=== PATIENT | male | born 1950 | race Caucasian/White ===

== ENCOUNTER 2017-12-05 13:25 | Inpatient (IN) | payer OTHER, MEDICARE ==
[~2017-12-05] VITALS: Ht 170.2 cm; Wt 80.7 kg
[~2017-12-05 13:25] MED LIST: LISI-362 PO; LOSA25TA50 PO; RAMI10CA72 PO; TERB250T63 PO
--- NOTE | 2017-12-05 13:35 | ER Report ---
History and Physical Time Seen By MD: 13:34 HPI/ROS CHIEF COMPLAINT: Fall HISTORY OF PRESENT ILLNESS: This is a 67-year-old male who presents to the emergency department with his for a fall. Patient states he was on a ladder today working on some [employer] lights when a claude of wind blew him off his ladder, he was about 7 feet off the ground. Landed on the right side of his back, on frozen ground. Patient states he is unsure if he actually lost consciousness, according to his he was confused for about 10 minutes after the fall. injury occurred about one hour prior to arrival. Patient was reluctant to come in for evaluation however after his pain increased his back, his convinced him to come in for further evaluation. Patient states today his right back and right ribs are painful and difficult to take deep breaths. He denies a headache or C-spine tenderness. Denies chest pain or abdominal pain. Denies fevers, aches, chills, nausea, vomiting or diarrhea. Patient is unable to sit up on the gurney without significant pain. REVIEW OF SYSTEMS: Constitutional: No fever, no chills. Eyes: No discharge. ENT: No sore throat. Cardiovascular: No chest pain, no palpitations. Respiratory: As above. Gastrointestinal: No abdominal pain, no vomiting. Genitourinary: No hematuria. Musculoskeletal: As above. Skin: No rashes. Neurological: No headache. Allergies: Coded Allergies: No Known Allergies (Verified Allergy, Unknown, 12/05/17) Home Meds Reported Medications Losartan Potassium (LOSARTAN POTASSIUM) 50 Mg Tablet, 50 MG PO QDAY 12/05/17 Discontinued Reported Medications Losartan Potassium (LOSARTAN POTASSIUM) 25 Mg Tablet, 5 MG PO QDAY 03/25/17 Past Medical/Surgical History Bateman has a past medical and surgical history of hypertension, left ankle fracture, wears glasses. Reviewed Nurses Notes: Yes Hx Smoking: No (CHEWS TOBACCO, 1 CAN PER WEEK ) Smoking Status: Never Smoker Hx Alcohol Use: Yes Constitutional Vital Sign - Last 24 Hours 12/05/17 12/05/17 12/05/17 12/05/17 13:29 13:31 13:34 13:40 Temp 97.5 Pulse 64 59 Resp 20 B/P (MAP) 172/88 165/91 (115) 172/88 (116) Pulse Ox 92 90 O2 Delivery Room Air 12/05/17 12/05/17 12/05/17 12/05/17 13:42 14:25 15:00 15:15 Pulse 66 64 83 B/P (MAP) 165/94 (117) Pulse Ox 90 89 90 12/05/17 12/05/17 12/05/17 12/05/17 15:30 15:45 15:50 15:51 Pulse 67 70 70 B/P (MAP) 141/76 (97) Pulse Ox 91 88 83 12/05/17 12/05/17 12/05/17 12/05/17 16:05 16:12 16:20 16:35 Pulse 73 69 71 B/P (MAP) 163/86 (111) Pulse Ox 97 98 12/05/17 16:50 Pulse 64 Pulse Ox 97 Physical Exam General Appearance: The patient is alert, has no immediate need for airway protection and no signs of toxicity. Eyes: Pupils equal and round no pallor or injection. ENT: Ears: TMs intact, pearly ziegler, no injection or hemotympanum. Nose: Inferior turbinates are pink and moist, no nasal discharge, no hematomas noted. Mouth:Mucous membranes are moist. Respiratory: There are no retractions, decreased lung sounds to be right lower lung field, all other jenkins clear. Cardiovascular: Regular rate and rhythm, no murmurs, clicks or rubs. No muffled heart sounds or JVD. Gastrointestinal: Abdomen is soft and non tender, no masses, bowel sounds normal. Neurological: Alert and oriented 4. Following all commands. Moving all extremities. No focal neuro deficits. Cranial nerves II through XII intact. Skin: Warm and dry, no rashes. No retroperitoneal bruising. No hematomas. Musculoskeletal: Neck is supple non tender. No thoracic or lumbar pain. No step -offs, crepitus or obvious deformities noted. Extremities are nontender, nonswollen and have full range of motion. DIFFERENTIAL DIAGNOSIS: After history and physical exam differential diagnosis was considered for contusion, rib fracture, concussion, cervical spine injury, intracranial bleed, kidney contusion, liver fracture, liver laceration, compression fracture. Medical Decision Making Data Points Result Diagram: 12/05/17 1335 12/05/17 1335 Laboratory Hematology Test 12/05/17 13:35 Red Blood Count 5.44 M/uL (4.00-5.60) Mean Corpuscular Volume 94.0 fL (80.0-96.0) Mean Corpuscular Hemoglobin 31.5 pg (26.0-33.0) Mean Corpuscular Hemoglobin Concent 33.5 g/dL (32.0-36.0) Red Cell Distribution Width 13.6 % (11.5-14.5) Mean Platelet Volume 8.6 fL (7.2-11.1) Neutrophils (%) (Auto) 76.1 % (39.4-72.5) Lymphocytes (%) (Auto) 16.7 % (17.6-49.6) Monocytes (%) (Auto) 5.9 % (4.1-12.4) Eosinophils (%) (Auto) 0.8 % (0.4-6.7) Basophils (%) (Auto) 0.5 % (0.3-1.4) Nucleated RBC Relative Count (auto) 0.0 /100WBC Neutrophils # (Auto) 9.2 K/uL (2.0-7.4) Lymphocytes # (Auto) 2.0 K/uL (1.3-3.6) Monocytes # (Auto) 0.7 K/uL (0.3-1.0) Eosinophils # (Auto) 0.1 K/uL (0.0-0.5) Basophils # (Auto) 0.1 K/uL (0.0-0.1) Nucleated RBC Absolute Count (auto) 0.00 K/uL Prothrombin Time 13.0 seconds (12.0-14.4) Prothromb Time International Ratio 0.98 Activated Partial Thromboplast Time 26 seconds (23-35) Urine Color Yellow Urine Clarity Slightly-cloudy Urine pH 5.0 pH (4.8-9.5) Urine Specific [place] 1.014 Urine Protein 100 mg/dL (NEGATIVE) Urine Glucose (UA) Negative mg/dL (NEGATIVE) Urine Ketones Negative mg/dL (NEGATIVE) Urine Blood Large (NEGATIVE) Urine Nitrite Negative (NEGATIVE) Urine Bilirubin Negative (NEGATIVE) Urine Urobilinogen Negative mg/dL (0.2-1.9) Urine Leukocyte Esterase Negative (NEGATIVE) Urine RBC 124 /HPF (0-2/HPF) Urine WBC 12 /HPF (0-5/HPF) Urine Squamous Epithelial Cells Few /LPF (</=FEW) Urine Bacteria Negative /HPF (NONE-FEW) Urine Granular Casts Many /LPF (NONE) Urine Mucus None /HPF (NONE-FEW) Sodium Level 138 mmol/L (137-145) Potassium Level 4.4 mmol/L (3.5-5.0) Chloride Level 102 mmol/L (98-107) Carbon Dioxide Level 25 mmol/L (22-30) Blood Urea Nitrogen 15 mg/dl (9-21) Creatinine 1.20 mg/dl (0.66-1.25) Glomerular Filtration Rate Calc > 60.0 Random Glucose 131 mg/dl (75-110) Calcium Level 9.2 mg/dl (8.4-10.2) Total Bilirubin 0.8 mg/dl (0.2-1.3) Aspartate Amino Transf (AST/SGOT) 46 U/L (0-35) Alanine Aminotransferase (ALT/SGPT) 43 U/L (0-56) Alkaline Phosphatase 77 U/L (0-126) Total Protein 7.6 gm/dl (6.3-8.2) Albumin 4.0 g/dl (3.5-5.0) Chemistry Test 12/05/17 13:35 White Blood Count 12.2 k/uL (4.5-11.0) Red Blood Count 5.44 M/uL (4.00-5.60) Hemoglobin 17.1 g/dL (14.0-18.0) Hematocrit 51.1 % (42.0-52.0) Mean Corpuscular Volume 94.0 fL (80.0-96.0) Mean Corpuscular Hemoglobin 31.5 pg (26.0-33.0) Mean Corpuscular Hemoglobin Concent 33.5 g/dL (32.0-36.0) Red Cell Distribution Width 13.6 % (11.5-14.5) Platelet Count 332 K/uL (150-450) Mean Platelet Volume 8.6 fL (7.2-11.1) Neutrophils (%) (Auto) 76.1 % (39.4-72.5) Lymphocytes (%) (Auto) 16.7 % (17.6-49.6) Monocytes (%) (Auto) 5.9 % (4.1-12.4) Eosinophils (%) (Auto) 0.8 % (0.4-6.7) Basophils (%) (Auto) 0.5 % (0.3-1.4) Nucleated RBC Relative Count (auto) 0.0 /100WBC Neutrophils # (Auto) 9.2 K/uL (2.0-7.4) Lymphocytes # (Auto) 2.0 K/uL (1.3-3.6) Monocytes # (Auto) 0.7 K/uL (0.3-1.0) Eosinophils # (Auto) 0.1 K/uL (0.0-0.5) Basophils # (Auto) 0.1 K/uL (0.0-0.1) Nucleated RBC Absolute Count (auto) 0.00 K/uL Prothrombin Time 13.0 seconds (12.0-14.4) Prothromb Time International Ratio 0.98 Activated Partial Thromboplast Time 26 seconds (23-35) Urine Color Yellow Urine Clarity Slightly-cloudy Urine pH 5.0 pH (4.8-9.5) Urine Specific [place] 1.014 Urine Protein 100 mg/dL (NEGATIVE) Urine Glucose (UA) Negative mg/dL (NEGATIVE) Urine Ketones Negative mg/dL (NEGATIVE) Urine Blood Large (NEGATIVE) Urine Nitrite Negative (NEGATIVE) Urine Bilirubin Negative (NEGATIVE) Urine Urobilinogen Negative mg/dL (0.2-1.9) Urine Leukocyte Esterase Negative (NEGATIVE) Urine RBC 124 /HPF (0-2/HPF) Urine WBC 12 /HPF (0-5/HPF) Urine Squamous Epithelial Cells Few /LPF (</=FEW) Urine Bacteria Negative /HPF (NONE-FEW) Urine Granular Casts Many /LPF (NONE) Urine Mucus None /HPF (NONE-FEW) Glomerular Filtration Rate Calc > 60.0 Calcium Level 9.2 mg/dl (8.4-10.2) Total Bilirubin 0.8 mg/dl (0.2-1.3) Aspartate Amino Transf (AST/SGOT) 46 U/L (0-35) Alanine Aminotransferase (ALT/SGPT) 43 U/L (0-56) Alkaline Phosphatase 77 U/L (0-126) Total Protein 7.6 gm/dl (6.3-8.2) Albumin 4.0 g/dl (3.5-5.0) Coagulation Test 12/05/17 13:35 Prothrombin Time 13.0 seconds Prothromb Time International Ratio 0.98 Activated Partial Thromboplast Time 26 seconds Urinalysis Test 12/05/17 13:35 Urine Color Yellow Urine Clarity Slightly-cloudy Urine pH 5.0 pH (4.8-9.5) Urine Specific [place] 1.014 Urine Protein 100 mg/dL (NEGATIVE) Urine Glucose (UA) Negative mg/dL (NEGATIVE) Urine Ketones Negative mg/dL (NEGATIVE) Urine Blood Large (NEGATIVE) Urine Nitrite Negative (NEGATIVE) Urine Bilirubin Negative (NEGATIVE) Urine Urobilinogen Negative mg/dL (0.2-1.9) Urine Leukocyte Esterase Negative (NEGATIVE) Urine RBC 124 /HPF (0-2/HPF) Urine WBC 12 /HPF (0-5/HPF) Urine Squamous Epithelial Cells Few /LPF (</=FEW) Urine Bacteria Negative /HPF (NONE-FEW) Urine Granular Casts Many /LPF (NONE) Urine Mucus None /HPF (NONE-FEW) EKG/Imaging Imaging Location: [facility] Patient: Pradeep Camargo : 1950 Visit/Account:[id number] Date of Sevice: 12/05/2017 EXAMINATION: CT Cervical Spine Without Contrast 12/05/2017 1:47 PM HISTORY: Fall. Loss of consciousness. COMPARISON STUDIES: Additional trauma CTs today TECHNIQUE: Axial images were obtained from the skull base through the upper thoracic spine without IV contrast administration. Coronal and sagittal reformatted images were obtained from the axial source data. One of the following dose optimization techniques was utilized in the performance of this exam: Automated exposure control; adjustment of the mA and/ or kV according to the patient's size; or use of an iterative reconstruction technique. Specific details can be referenced in the facility's radiology CT exam operational policy. FINDINGS: Pre-vertebral soft tissues: negative Alignment: negative Vertebral bodies: No acute injury. Hemangioma in the T7 and T1 vertebral bodies. Posterior elements: Fairly mild facet spurring mostly towards the left at C3-4. Disc Spaces: Multilevel spondylosis. Disc height loss and disc bulging at C6-7. Visualized soft tissues anterior neck: Carotid atherosclerosis. Low-density or cystic nodules within the right thyroid better shown by chest CT today. Visualized lung / mediastinum: Small pneumothorax in the right apex. IMPRESSION: No acute bony injury of the cervical spine. Small right pneumothorax is present. See separate chest CT report. I called report to DEJAH KENT at 12/05/2017 3:44 PM. Report Dictated By: Damon Ly MD at 12/05/2017 3:12 PM Report E-Signed By: Damon Ly MD at 12/05/2017 3:46 PM WSN:[id number] Location: [facility] Patient: Pradeep Camargo : 1950 Visit/Account:[id number] Date of Sevice: 12/05/2017 ADDENDUM #1 There is minimal gas lateral to the right rib cage which would support air leak. Report Dictated By: Damon Ly MD at 12/05/2017 3:18 PM Report E-Signed By: Damon Ly MD at 12/05/2017 3:19 PM ORIGINAL REPORT EXAMINATION: Portable AP Chest 12/05/2017 1:47 PM HISTORY: Fall COMPARISON: No prior comparisons. Pending trauma CTs. FINDINGS: Cardiomediastinal contours: Aortic knob is well-defined. Aorta is atherosclerotic. Heart is not significantly enlarged. Lungs and pleura: Airspace density in the right lower lung field. Minimal atelectasis or scarring in the lateral left base. No visible pneumothorax. Bones/soft tissues: Mild lateral right fourth rib deformity of uncertain chronicity. IMPRESSION: 1. Airspace density in the right lower lung could be due to trauma or possibly pulmonary infiltrate. 2. Possible lateral right fourth rib fracture. Report Dictated By: Damon Ly MD at 12/05/2017 2:27 PM Report E-Signed By: Damon Ly MD at 12/05/2017 2:46 PM WSN:[id number] Location: [facility] Patient: Pradeep Camargo : 1950 Visit/Account:[id number] Date of Sevice: 12/05/2017 ADDENDUM #1 I did discuss in the body of the report but did not specifically noted in the impression that there is a narrowed segment in the sigmoid colon. This may more likely simply be peristalsis but a fixed annular focus is difficult to exclude entirely. If the patient has not had maintenance routine screening colonoscopy, that would be worthwhile. I did call this to the ER at 5:51 PM. Report Dictated By: Damon Ly MD at 12/05/2017 6:01 PM Report E-Signed By: Damon Ly MD at 12/05/2017 6:02 PM ORIGINAL REPORT EXAMINATION: CT Chest With Contrast CT Abdomen With Contrast CT Pelvis With Contrast CT thoracic spine reformats CT lumbar spine reformats 12/05/2017 1:47 PM HISTORY: Fall. Loss of consciousness. TECHNIQUE: Spiral scan was obtained through the chest, abdomen and pelvis during injection of nonionic iodinated intravenous contrast. Dedicated reformatting was also done to cover the thoracic and lumbar spine. Contrast: 100 mL of IV Isovue 370. One of the following dose optimization techniques was utilized in the performance of this exam: Automated exposure control; adjustment of the mA and/ or kV according to the patient's size; or use of an iterative reconstruction technique. Specific details can be referenced in the facility's radiology CT exam operational policy. COMPARISON STUDIES: Separate CT head and cervical spine today. FINDINGS: CHEST: Lungs / pleura: Airspace opacity or pulmonary contusion in the right lower lobe. Small right pneumothorax. Small effusion. No significant acute finding on the left. Mediastinum / lilia: No mediastinal hematoma or shift. Heart / pericardium: negative Vessels: negative Musculoskeletal / Body wall: Posterolateral right rib fractures involving the fourth fourth through ninth and possibly the 10th ribs. There is also subtle cortical buckling in the anterolateral right third through sixth ribs which is probably acutely traumatic. There is soft tissue gas along the lateral and posterior right chest wall and there is some gas in front of the thoracic spine and in the epidural space. Lymph node assessment: negative Lower neck: Cystic-appearing right lobe thyroid nodules. Thoracic spine: Paraspinous gas from T5 through T6 as well as some epidural gas at these levels presumably dissecting from the chest wall related to the pneumothorax. Hemangioma in the T1 vertebral body. Superior endplate concavity at C5 is probably chronic. Mild wedging at T8. Subtle superior endplate wedging at T10 and T11 with mild wedging at T12. No bony retropulsion. No acute traumatic involvement of the pedicles or posterior elements. Multilevel degenerative spurring in the mid and lower thoracic spine. ABDOMEN AND PELVIS: Liver / biliary: Fatty liver. No acute injury. Pancreas: negative Spleen: negative Adrenal glands: negative Kidneys / retroperitoneum: Small cortical cysts. No acute injury. Pelvic structures: Prostate is prominent at 5.5 x 5.4 cm. Bladder is slightly thick-walled secondary to that. Bowel / peritoneum / mesenteries: Diverticulosis of the distal colon. No obstruction or acute bowel injury. Diverticulosis of colon. There is a thickened diverticulum with inflammation of fat around it in the anterolateral mid descending colon. Just over 3 cm short narrowed segment is present in the mid sigmoid colon. Vessels: Atherosclerosis. 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 Musculoskeletal / Body wall: No acute bony injury in the pelvis.. Small fatty inguinal hernia on the right with minimal fatty inguinal protrusion on the left. Lymph no e assessment: negative Lumbar spine: Subtly wedged appearance at L1; I would favor chronicity. There is no retropulsion or posterior element involvement. Degenerative changes most notably at L5-S1. IMPRESSION:1. Multiple right rib fractures with a small pneumothorax and gas dissecting the chest wall and the paraspinous area. There is also right pulmonary contusion and small right effusion. 2. Mild thoracic and lumbar wedgings as detailed by level above. All of these may be chronic although one or more could be acute compressive deformities. There is no bony retropulsion or any posterior element involvement to indicate any mechanical instability at these levels. 3. No other acute traumatic finding in the chest, abdomen, or pelvis. 4. Diverticulitis in the mid descending colon. 5. Low-density or cystic right lobe thyroid nodules. I called report to DEJAH KENT at 12/05/2017 3:44 PM. Report Dictated By: Damon Ly MD at 12/05/2017 3:24 PM Report E-Signed By: Damon Ly MD at 12/05/2017 3:55 PM WSN:[id number] ED Course/Re-evaluation Clinical Indication for ER IV: Hydration, IV Access ED Course The patient was admitted to room. A history and physical were obtained. Differential diagnoses were considered. An IV was started. A CBC, CMP, PT/INR, PTT and UA were obtained. Slight bump in his WBCs at 12.2 likely traumatic increase. 4 mg IV Zofran, 4 mg IV morphine were given. Tetanus updated. The rest of the rest of the lab studies unremarkable. The urine showing large blood , urine RBC 124, likely from contused kidney. Head and neck CT negative for any acute findings. A chest abdomen and pelvis showing multiple right rib fractures with a small pneumothorax, pneumomediastinum, pulmonary contusion with a fusion. Also mild thoracic and lumbar wedging could be chronic however given the recent injury could be acute. No other acute traumatic findings in the chest abdomen or pelvis. Incidental finding of diverticulitis and cystic right lobe thyroid nodule. I did review the results as well as the CT results with the patient and his . The patient stated that he was surprised with results but was willing to come into the hospital for pain control and continued observation. I did speak with Dr. Wells as noted below. Dr. Wells has accepted the patient indicated his services and the patient will be admitted to the hospital. Dr. Wells did come in and see the patient's. The patient had no other questions or concerns and was admitted. 12/05/2017 4:07:02 pm I did speak with Dr. Wells regarding the patient's case he is can come in to evaluate the patient and consider admission to the hospital. 12/05/2017 4:30:[address] Wells did come and speak with the patient's and has agreed to admit the patient to his service. 12/05/2017 6:40:15 pm radiology called back for another verbal report on several finding, did say that there was maybe some shortening of the sigmoid colon and a follow-up colonoscopy would be warranted. I did update Dr. Wells with the incidental findings. Decision to Disposition Date: Dec 05, 2017 Decision to Disposition Time: 16:37 Depart Departure Latest Vital Signs Vital Signs Date Time Temp Pulse Resp B/P (MAP) Pulse Ox O2 Delivery O2 Flow Rate FiO2 12/05/17 16:50 64 97 12/05/17 16:12 163/86 (111) 12/05/17 13:29 97.5 20 Room Air Impression: Primary Impression: Pneumothorax Additional Impressions: Multiple rib fractures Kidney contusion Fall from ladder Pneumomediastinum Condition: Improved Disposition: Admitted from ER Referrals: MAYNOR PISANO MD (PCP) Problem Qualifiers Primary Impression: Pneumothorax Pneumothorax type: traumatic Encounter type: initial encounter Qualified Codes: S27.0XXA - Traumatic pneumothorax, initial encounter Additional Impressions: Multiple rib fractures Encounter type: initial encounter Fracture type: closed Laterality: right Qualified Codes: S22.41XA - Multiple fractures of ribs, right side, initial encounter for closed fracture Kidney contusion Encounter type: initial encounter Laterality: unspecified laterality Qualified Codes: S37.019A - Minor contusion of unspecified kidney, initial encounter Fall from ladder Encounter type: initial encounter Qualified Codes: W11.XXXA - Fall on and from ladder, initial encounter DEJAH KENTP-BC Dec 05, 2017 13:35
[2017-12-05] MEDS ORDERED: DIPHTH/TETANUS/ACEL. PERTUSSIS IM ONLY ONE (13:50)
[2017-12-05] MEDS ORDERED: MORPHINE 4 MG/ML SYR IVP ONE (14:05)
[2017-12-05] MEDS ORDERED: ONDANSETRON 4 MG/2 ML VIAL IVP ONE (14:05)
[2017-12-05 14:08] LABS: PLATELET COUNT, AUTOMATED 332 K/uL (150-450)
[2017-12-05 14:12] LABS: INR 0.98
[2017-12-05] MEDS ORDERED: IOPAMIDOL 76% 100 ML INFUS BTL 100 ML ONE (14:28)
[2017-12-05] MEDS ORDERED: NS 0.9% 20 ML SDV 60 ML ONE (14:29)
--- NOTE | 2017-12-05 14:50 | RADIOLOGY IMAGING REPORT ---
FACILITY: [facility] [place]IENT NAME: Pradeep Camargo : 1950 MR: [id number] V: [id number] EXAM DATE: ORDERING PHYSICIAN: DEJAH KENT TECHNOLOGIST: Location: [facility] - [place] Patient: Pradeep Camargo : 1950 Visit/Account:[id number] Date of Sevice: 12/05/2017 ADDENDUM #1 There is minimal gas lateral to the right rib cage which would support air leak. Report Dictated By: Damon Ly MD at 12/05/2017 3:18 PM Report E-Signed By: Damon Ly MD at 12/05/2017 3:19 PM ORIGINAL REPORT EXAMINATION: Portable AP Chest 12/05/2017 1:47 PM HISTORY: Fall COMPARISON: No prior comparisons. Pending trauma CTs. FINDINGS: Cardiomediastinal contours: Aortic knob is well-defined. Aorta is atherosclerotic. Heart is not signi ficantly enlarged. Lungs and pleura: Airspace density in the right lower lung field. Minimal atelectasis or scarring in the lateral left base. No visible pneumothorax. Bones/soft tissues: Mild lateral right fourth rib deformity of uncertain chronicity. IMPRESSION: 1. Airspace density in the right lower lung could be due to trauma or possibly pulmonary infiltrate. 2. Possible lateral right fourth rib fracture. Report Dictated By: Damon Ly MD at 12/05/2017 2:27 PM Report E-Signed By: Damon Ly MD at 12/05/2017 2:46 PM WSN:[id number]
--- NOTE | 2017-12-05 14:51 | RADIOLOGY IMAGING REPORT ---
FACILITY: [facility] - [place] PATIENT NAME: Pradeep Camargo : 1950 MR: [id number] V: [id number] EXAM DATE: ORDERING PHYSICIAN: DEJAH KENT TECHNOLOGIST: Location: [facility] - [place] Patient: Pradeep Camargo : 1950 Visit/Account:[id number] Date of Sevice: 12/05/2017 EXAMINATION: AP pelvis 12/05/2017 1:47 PM HISTORY: fall, motion picture projectionist rib, back pain COMPARISON: Pending trauma CTs. FINDINGS: Visualized bony structures are intact and anatomically aligned without fracture or other a cute osseous abnormality evident. IMPRESSION: Negative exam. Report Dictated By: Damon Ly MD at 12/05/2017 2:46 PM Report E-Signed By: Damon Ly MD at 12/05/2017 2:47 PM WSN:[id number]
--- NOTE | 2017-12-05 15:49 | RADIOLOGY IMAGING REPORT ---
FACILITY: [facility] - [place] PATIENT NAME: Pradeep Camargo : 1950 MR: [id number] V: [id number] EXAM DATE: ORDERING PHYSICIAN: DEJAH KENT TECHNOLOGIST: Location: [facility] Patient: Pradeep Camargo : 1950 Visit/Account:[id number] Date of Sevice: 12/05/2017 EXAMINATION: CT Head Without Contrast 12/05/2017 1:47 PM HISTORY: fall, loc TECHNIQUE: Contiguous axial images were obtained from the skull base to the vertex without intraven ous contrast. One of the following dose optimization techniques was utilized in the performance of this exam: Autom ated exposure control; adjustment of the mA and/or kV according to the patient's size; or use of an i terative reconstruction technique. Specific details can be referenced in the facility's radiology C T exam operational policy. COMPARISON STUDIES: Additional trauma CTs today. FINDINGS: Ventricles / sulci / fissures: negative Masses / hemorrhage / midline shift: negative White matter: Mild white matter hypodensities which are age appropriate. No acute finding. Rosario-white differentiation: negative Extra-axial spaces: negative Dural venous sinuses / arterial structures: negative Skull base / calvarium: negative Visualized mastoid air cells / paranasal sinuses: negative IMPRESSION: Normal head CT. No evidence of mass, acute ischemia or hemorrhage. I called report to DEJAH KENT at 12/05/2017 3:44 PM. Report Dictated By: Damon Ly MD at 12/05/2017 3:07 PM Report E-Signed By: Damon Ly MD at 12/05/2017 3:45 PM WSN:[id number]
--- NOTE | 2017-12-05 15:50 | RADIOLOGY IMAGING REPORT ---
FACILITY: [facility] [place] PATIENT NAME: Pradeep Camargo : 1950 MR: [id number] V: [id number] EXAM DATE: ORDERING PHYSICIAN: DEJAH KENT TECHNOLOGIST: Location: [facility] Patient: Pradeep Camargo : 1950 Visit/Account:[id number] Date of Sevice: 12/05/2017 EXAMINATION: CT Cervical Spine Without Contrast 12/05/2017 1:47 PM HISTORY: Fall. Loss of consciousness. COMPARISON STUDIES: Additional trauma CTs today TECHNIQUE: Axial images were obtained from the skull base through the upper thoracic spine without I V contrast administration. Coronal and sagittal reformatted images were obtained from the axial [facility] e data. One of the following dose optimization techniques was utilized in the performance of this exam: Autom ated exposure control; adjustment of the mA and/or kV according to the patient's size; or use of an i terative reconstruction technique. Specific details can be referenced in the facility's radiology C T exam operational policy. FINDINGS: Pre-vertebral soft tissues: negative Alignment: negative Vertebral bodies: No acute injury. Hemangioma in the T7 and T1 vertebral bodies. Posterior elements: Fairly mild facet spurring mostly towards the left at C3-4. Disc Spaces: Multilevel spondylosis. Disc height loss and disc bulging at C6-7. Visualized soft tissues anterior neck: Carotid atherosclerosis. Low-density or cystic nodules within the right thyroid better shown by chest CT today. Visualized lung / mediastinum: Small pneumothorax in the right apex. IMPRESSION: No acute bony injury of the cervical spine. Small right pneumothorax is present. See separate chest C T report. I called report to DEJAH KENT at 12/05/2017 3:44 PM. Report Dictated By: Damon Ly MD at 12/05/2017 3:12 PM Report E-Signed By: Damon Ly MD at 12/05/2017 3:46 PM WSN:[id number]
--- NOTE | 2017-12-05 16:01 | RADIOLOGY IMAGING REPORT ---
FACILITY: [facility] PATIENT NAME: Pradeep Camargo : 1950 MR: [id number] V: [id number] EXAM DATE: ORDERING PHYSICIAN: DEJAH KENT TECHNOLOGIST: Location: [facility] [place] Patient: Pradeep Camargo : 1950 Visit/Account:[id number] Date of Sevice: 12/05/2017 ADDENDUM #1 I did discuss in the body of the report but did not specifically noted in the impression that there i s a narrowed segment in the sigmoid colon. This may more likely simply be peristalsis but a fixed ba ular focus is difficult to exclude entirely. If the patient has not had maintenance routine screening colonoscopy, that would be worthwhile. I did call this to the ER at 5:51 PM. Report Dictated By: Damon Ly MD at 12/05/2017 6:01 PM Report E-Signed By: Damon Ly MD at 12/05/2017 6:02 PM ORIGINAL REPORT EXAMINATION: CT Chest With Contrast CT Abdomen With Contrast CT Pelvis With Contrast CT thoracic spine reformats CT lumbar spine reformats 12/05/2017 1:47 PM HISTORY: Fall. Loss of consciousness. TECHNIQUE: Spiral scan was obtained through the chest, abdomen and pelvis during injection of nonio daja iodinated intravenous contrast. Dedicated reformatting was also done to cover the thoracic and nicky mbar spine. Contrast: 100 mL of IV Isovue 370. One of the following dose optimization techniques was utilized in the performance of this exam: Autom ated exposure control; adjustment of the mA and/or kV according to the patient's size; or use of an i terative reconstruction technique. Specific details can be referenced in the facility's radiology C T exam operational policy. COMPARISON STUDIES: Separate CT head and cervical spine today. FINDINGS: CHEST: Lungs / pleura: Airspace opacity or pulmonary contusion in the right lower lobe. Small right pneumoth orax. Small effusion. No significant acute finding on the left. Mediastinum / lilia: No mediastinal hematoma or shift. Heart / pericardium: negative Vessels: negative Musculoskeletal / Body wall: Posterolateral right rib fractures involving the fourth fourth through n inth and possibly the 10th ribs. There is also subtle cortical buckling in the anterolateral right th ird through sixth ribs which is probably acutely traumatic. There is soft tissue gas along the latera l and posterior right chest wall and there is some gas in front of the thoracic spine and in the epid ural space. Lymph node assessment: negative Lower neck: Cystic-appearing right lobe thyroid nodules. Thoracic spine: Paraspinous gas from T5 through T6 as well as some epidural gas at these levels presu mably dissecting from the chest wall related to the pneumothorax. Hemangioma in the T1 vertebral body . Superior endplate concavity at C5 is probably chronic. Mild wedging at T8. Subtle superior endplate wedging at T10 and T11 with mild wedging at T12. No bony retropulsion. No acute traumatic involvemen t of the pedicles or posterior elements. Multilevel degenerative spurring in the mid and lower thorac ic spine. ABDOMEN AND PELVIS: Liver / biliary: Fatty liver. No acute injury. Pancreas: negative Spleen: negative Adrenal glands: negative Kidneys / retroperitoneum: Small cortical cysts. No acute injury. Pelvic structures: Prostate is prominent at 5.5 x 5.4 cm. Bladder is slightly thick-walled seconda ry to that. Bowel / peritoneum / mesenteries: Diverticulosis of the distal colon. No obstruction or acute bowel i njury. Diverticulosis of colon. There is a thickened diverticulum with inflammation of fat around it in the anterolateral mid descending colon. Just over 3 cm short narrowed segment is present in the mi d sigmoid colon. Vessels: Atherosclerosis. 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 Musculoskeletal / Body wall: No acute bony injury in the pelvis.. Small fatty inguinal hernia on the right with minimal fatty inguinal protrusion on the left. Lymph no e assessment: negative Lumbar spine: Subtly wedged appearance at L1; I would favor chronicity. There is no retropulsion or p osterior element involvement. Degenerative changes most notably at L5-S1. IMPRESSION:1. Multiple right rib fractures with a small pneumothorax and gas dissecting the chest wal l and the paraspinous area. There is also right pulmonary contusion and small right effusion. 2. Mild thoracic and lumbar wedgings as detailed by level above. All of these may be chronic although one or more could be acute compressive deformities. There is no bony retropulsion or any posterior e lement involvement to indicate any mechanical instability at these levels. 3. No other acute traumatic finding in the chest, abdomen, or pelvis. 4. Diverticulitis in the mid descending colon. 5. Low-density or cystic right lobe thyroid nodules. I called report to DEJAH KENT at 12/05/2017 3:44 PM. Report Dictated By: Damon Ly MD at 12/05/2017 3:24 PM Report E-Signed By: Damon Ly MD at 12/05/2017 3:55 PM WSN:[id number]
--- NOTE | 2017-12-05 16:01 | RADIOLOGY IMAGING REPORT ---
FACILITY: [facility] PATIENT NAME: Pradeep Camargo : 1950 MR: [id number] V: [id number] EXAM DATE: ORDERING PHYSICIAN: DEJAH KENT TECHNOLOGIST: Location: [facility] Patient: Pradeep Camargo : 1950 Visit/Account:[id number] Date of Sevice: 12/05/2017 ADDENDUM #1 I did discuss in the body of the report but did not specifically noted in the impression that there i s a narrowed segment in the sigmoid colon. This may more likely simply be peristalsis but a fixed ba ular focus is difficult to exclude entirely. If the patient has not had maintenance routine screening colonoscopy, that would be worthwhile. I did call this to the ER at 5:51 PM. Report Dictated By: Damon Ly MD at 12/05/2017 6:01 PM Report E-Signed By: Damon Ly MD at 12/05/2017 6:02 PM ORIGINAL REPORT EXAMINATION: CT Chest With Contrast CT Abdomen With Contrast CT Pelvis With Contrast CT thoracic spine reformats CT lumbar spine reformats 12/05/2017 1:47 PM HISTORY: Fall. Loss of consciousness. TECHNIQUE: Spiral scan was obtained through the chest, abdomen and pelvis during injection of nonio daja iodinated intravenous contrast. Dedicated reformatting was also done to cover the thoracic and nicky mbar spine. Contrast: 100 mL of IV Isovue 370. One of the following dose optimization techniques was utilized in the performance of this exam: Autom ated exposure control; adjustment of the mA and/or kV according to the patient's size; or use of an i terative reconstruction technique. Specific details can be referenced in the facility's radiology C T exam operational policy. COMPARISON STUDIES: Separate CT head and cervical spine today. FINDINGS: CHEST: Lungs / pleura: Airspace opacity or pulmonary contusion in the right lower lobe. Small right pneumoth orax. Small effusion. No significant acute finding on the left. Mediastinum / lilia: No mediastinal hematoma or shift. Heart / pericardium: negative Vessels: negative Musculoskeletal / Body wall: Posterolateral right rib fractures involving the fourth fourth through n inth and possibly the 10th ribs. There is also subtle cortical buckling in the anterolateral right th ird through sixth ribs which is probably acutely traumatic. There is soft tissue gas along the latera l and posterior right chest wall and there is some gas in front of the thoracic spine and in the epid ural space. Lymph node assessment: negative Lower neck: Cystic-appearing right lobe thyroid nodules. Thoracic spine: Paraspinous gas from T5 through T6 as well as some epidural gas at these levels presu mably dissecting from the chest wall related to the pneumothorax. Hemangioma in the T1 vertebral body . Superior endplate concavity at C5 is probably chronic. Mild wedging at T8. Subtle superior endplate wedging at T10 and T11 with mild wedging at T12. No bony retropulsion. No acute traumatic involvemen t of the pedicles or posterior elements. Multilevel degenerative spurring in the mid and lower thorac ic spine. ABDOMEN AND PELVIS: Liver / biliary: Fatty liver. No acute injury. Pancreas: negative Spleen: negative Adrenal glands: negative Kidneys / retroperitoneum: Small cortical cysts. No acute injury. Pelvic structures: Prostate is prominent at 5.5 x 5.4 cm. Bladder is slightly thick-walled seconda ry to that. Bowel / peritoneum / mesenteries: Diverticulosis of the distal colon. No obstruction or acute bowel i njury. Diverticulosis of colon. There is a thickened diverticulum with inflammation of fat around it in the anterolateral mid descending colon. Just over 3 cm short narrowed segment is present in the mi d sigmoid colon. Vessels: Atherosclerosis. 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 Musculoskeletal / Body wall: No acute bony injury in the pelvis.. Small fatty inguinal hernia on the right with minimal fatty inguinal protrusion on the left. Lymph no e assessment: negative Lumbar spine: Subtly wedged appearance at L1; I would favor chronicity. There is no retropulsion or p osterior element involvement. Degenerative changes most notably at L5-S1. IMPRESSION:1. Multiple right rib fractures with a small pneumothorax and gas dissecting the chest wal l and the paraspinous area. There is also right pulmonary contusion and small right effusion. 2. Mild thoracic and lumbar wedgings as detailed by level above. All of these may be chronic although one or more could be acute compressive deformities. There is no bony retropulsion or any posterior e lement involvement to indicate any mechanical instability at these levels. 3. No other acute traumatic finding in the chest, abdomen, or pelvis. 4. Diverticulitis in the mid descending colon. 5. Low-density or cystic right lobe thyroid nodules. I called report to DEJAH KENT at 12/05/2017 3:44 PM. Report Dictated By: Damon Ly MD at 12/05/2017 3:24 PM Report E-Signed By: Damon Ly MD at 12/05/2017 3:55 PM WSN:[id number]
[2017-12-05] MEDS ORDERED: NORMOSOL R SOLN(*) 1000 ML BAG 1,000 ML IV PRN (16:37)
--- NOTE | 2017-12-05 16:37 | General Surgery 1 H&P ---
History of Present Illness Chief Complaint right chest pain History of Present Illness 67 yo male with a history of htn fell off ladder today. he complains of right chest pain. he was disoriented initially. he denies head , neck back, abdominal or extremity pain. seen in ed ct head neg, ct neck neg, ct of abdomen chest and pelvis revealed right multiple rib fractures, small right pneumothorax and pulmonary contusion. he has a short segment of diverticulitis on ct. compression fractures in thoracic and lumbar vertebrae. ua showed hematuria. History Other Past Surgeries: no operations Home Meds Reported Medications Losartan Potassium (LOSARTAN POTASSIUM) 25 Mg Tablet, 5 MG PO QDAY 03/25/17 Allergies: Coded Allergies: No Known Allergies (Verified Allergy, Unknown, 12/05/17) Review of Systems History of Hypertension?: Yes History of Diabetes?: No History of DVT?: No Obstructive Sleep Apnea?: No History of Liver Disease?: No History of Kidney Disease?: No Gastrointestinal: No Nausea, No Vomiting, No Diarrhea, No Dysphagia, No Constipation, No Early Satiety, No Hematemesis, No Hematochezia, No Melena, No Abdominal Pain, No Other : Denies Dysuria, Denies Other Exam Vital Signs Date Time Temp Pulse Resp B/P (MAP) Pulse Ox O2 Delivery O2 Flow Rate FiO2 12/05/17 15:45 70 88 12/05/17 13:42 165/94 (117) 12/05/17 13:29 97.5 20 Room Air General Appearance: Alert, Awake, No Acute Distress Neuro: No Gross deficits ENT: Unremarkable Neck: Other (nontender) Cardiovascular: Regular Rate and Rhythm Respiratory: Clear to Auscultation Chest: Other (tender to palpation on the right) GI: Abd Soft and Non-Tender Extremities: Soft and Non Tender Medical Decision Making Data Points Result Diagram: 12/05/17 1335 12/05/17 1335 Assessment and Plan Problems: (1) Pneumothorax Assessment & Plan: will repeat cxr in am (2) Concussion Assessment & Plan: alert and oriented now with neg ct, no further workup indicated (3) Hematuria Assessment & Plan: ct kidney neg, no further workup needed (4) Rib fractures Assessment & Plan: admit for pain control (5) Closed fracture of lumbar vertebral body Assessment & Plan: no back pain, most likely old findings on ct (6) Diverticulitis Assessment & Plan: no abdominal pain no treatment necessary Copies to: ORVILLE MERIDA MD Venous Thromboembolism Antithrombotics Is Pt On Any Antithrombotics?: No ORVILLE MERIDA MD Dec 05, 2017 16:37
[2017-12-05] MEDS ORDERED: ONDANSETRON 4 MG/2 ML VIAL IVP PRN (16:40)
[2017-12-05 17:35] VITALS: BP 157/74
[2017-12-05] MEDS: LIDOCAINE 5% PATCH TP SCH (17:40)
[2017-12-05] MEDS: KETOROLAC 30 MG/ML VIAL IVP SCH (17:40)
[2017-12-05] MEDS: PANTOPRAZOLE SOD 40 MG TABEC PO SCH (17:41)
[2017-12-05] MEDS ORDERED: LOSA50TA72 PO (18:00)
[2017-12-05] MEDS: PATCH REMOVAL 1 EA TOP SCH (20:34)
[2017-12-05 20:37] VITALS: BP 119/53
[2017-12-06] MEDS: KETOROLAC 30 MG/ML VIAL IVP SCH ×5 (00:20→23:20)
--- NOTE | 2017-12-06 05:32 | RADIOLOGY IMAGING REPORT ---
FACILITY: [facility] PATIENT NAME: Pradeep Camargo : 1950 MR: [id number] V: [id number] EXAM DATE: ORDERING PHYSICIAN: ORVILLE MERIDA TECHNOLOGIST: Location: [facility] Patient: Pradeep Camargo : 1950 Visit/Account:[id number] Date of Sevice: 12/06/2017 CHEST PA AND LAT HISTORY: Pneumothorax COMPARISON: 12/05/2017 FINDINGS: Cardiomediastinal contours: Normal Lungs and pleura: New moderate right pneumothorax. No mediastinal shift. Right lower lobe airspace co nsolidation, little changed. Streaky left basilar airspace disease. Bones/soft tissues: Normal Other findings: None significant IMPRESSION: 1. New moderate right pneumothorax. 2. Stable right lower lobe airspace consolidation. 3. Streaky left basilar opacities. Results were called to the Bishop rodriguez at 12/06/2017 5:27 AM. Report Dictated By: Musa Jackson MD at 12/06/2017 5:18 AM Report E-Signed By: Musa Jackson MD at 12/06/2017 5:27 AM WSN:[id number]
[2017-12-06 05:38] VITALS: BP 122/62
[2017-12-06 05:47] LABS: PLATELET COUNT, AUTOMATED 238 K/uL (150-450)
[2017-12-06 07:36] VITALS: BP 133/74
[2017-12-06] MEDS ORDERED: NS 0.9% IRRIG(*) 1000ML PLCT 1,000 ML ONE (07:46)
--- NOTE | 2017-12-06 08:05 | General Surgery Progress Note ---
Subjective Progress Notes Subjective no new complaints today. pain controlled. breathing easy. Physical Exam Vital Signs Date Time Temp Pulse Resp B/P (MAP) Pulse Ox O2 Delivery O2 Flow Rate FiO2 12/06/17 07:36 98.6 63 16 133/74 (93) 91 Room Air 12/06/17 05:38 0.5 General Appearance: Alert, Awake, No Acute Distress Chest: Other (chest xray shows increased pneumothorax) Result Diagram: 12/06/17 0530 12/05/17 1335 Assessment and Plan Problems: (1) Pneumothorax Assessment & Plan: will repeat cxr in am 12/06/17 cxr shows increased right pneumothorax. under local a 28 setswana chest tube placed. (2) Concussion Assessment & Plan: alert and oriented now with neg ct, no further workup indicated (3) Hematuria Assessment & Plan: ct kidney neg, no further workup needed 12/06/17 will repeat ua in am (4) Rib fractures Assessment & Plan: admit for pain control (5) Closed fracture of lumbar vertebral body Assessment & Plan: no back pain, most likely old findings on ct (6) Diverticulitis Assessment & Plan: no abdominal pain no treatment necessary 12/06/17 pt without abdominal pain or bowel changes. he had a colonoscopy last summer. not sure what to make of abnormal area seen on ct but not in a position to have colonoscopy right now. Exam Sepsis Risk: No Definite Risk Problem Qualifiers (1) Pneumothorax: Pneumothorax type: traumatic Encounter type: initial encounter Qualified Codes: S27.0XXA - Traumatic pneumothorax, initial encounter ORVILLE MERIDA MD Dec 06, 2017 08:05
--- NOTE | 2017-12-06 08:24 | Post Operative Progress Note ---
Post Operative Progress Note Date: Dec 06, 2017 Time: 08:23 Surgeon: esa Anesthesia: local Pre-Op Diagnosis: right plneumothorax Post-Op Diagnosis: same Procedure(s): right chest tube placement ORVILLE MERIDA MD Dec 06, 2017 08:24
[2017-12-06] MEDS: LIDOCAINE 5% PATCH TP SCH (08:47)
[2017-12-06] MEDS: PANTOPRAZOLE SOD 40 MG TABEC PO SCH (08:52)
[2017-12-06] MEDS ORDERED: LOSARTAN POTASSIUM 50 MG TAB PO SCH (09:00)
[2017-12-06 09:18] VITALS: Ht 170.2 cm; Wt 80.7 kg
--- NOTE | 2017-12-06 10:22 | RADIOLOGY IMAGING REPORT ---
FACILITY: [facility] PATIENT NAME: Pradeep Camargo : 1950 MR: [id number] V: [id number] EXAM DATE: [id number] ORDERING PHYSICIAN: ORVILLE MERIDA TECHNOLOGIST: Location: [facility] [place] Patient: Pradeep Camargo : 1950 Visit/Account:[id number] Date of Sevice: 12/06/2017 Exam type: CHEST SINGLE AP History: chest tube placement Comparison: December 06, 2017 at 5:04 AM. Findings: There is been placement of a right-sided chest tube with the distal tip projecting over the medial as pect of the right mid thorax. There has been almost complete expansion of the right lung with only a minimal less than 5% right apical pneumothorax remaining. Bibasilar airspace consolidation appears relatively unchanged. The cardiac silhouette is normal in size. IMPRESSION: 1. Interval placement of a right-sided chest tube with near-complete reexpansion of the right lung w ith only a minimal less than 5% right apical pneumothorax remaining Bibasilar airspace consolidation unchanged Report Dictated By: Maria Guadalupe Briceño MD at 12/06/2017 10:16 AM Report E-Signed By: Maria Guadalupe Briceño MD at 12/06/2017 10:18 AM WSN:[email or web address]
[2017-12-06 10:43] VITALS: BP 135/72
[2017-12-06 15:03] VITALS: BP 133/78
[2017-12-06 18:35] VITALS: BP 142/72
[2017-12-06] MEDS: APAP/HYDROCODONE 325/5 TAB PO PRN ×2 (19:03→23:20)
[2017-12-06] MEDS: PATCH REMOVAL 1 EA TOP SCH (21:00)
[2017-12-06 23:20] VITALS: BP 138/78
[2017-12-07 03:45] VITALS: BP 132/70
--- NOTE | 2017-12-07 04:19 | OPERATIVE REPORT 1 ---
EVENT DATE: December 06, 2017 SURGEON: Eddie Wells MD ANESTHESIA: Local. PREOPERATIVE DIAGNOSIS Right pneumothorax. POSTOPERATIVE DIAGNOSIS Right pneumothorax. PROCEDURE PERFORMED Placement of right-sided chest tube. DESCRIPTION OF PROCEDURE Patient was placed in a reclining position. Right lateral chest was prepped and draped in a sterile fashion. Skin was anesthetized with 1% Xylocaine. Incision was made in the anterior axillary line. Hemostat was used to probe through just above the rib into the pleural space. A 28 Welsh chest tube was then threaded into position. It was sutured in place with an #0-silk. A 3-0 silk pullout stitch was placed. It was hooked to a Pleur-evac and taped into position. Portable chest x-ray pending. [facility]
[2017-12-07] MEDS: KETOROLAC 30 MG/ML VIAL IVP SCH ×2 (05:38→11:21)
--- NOTE | 2017-12-07 06:54 | RADIOLOGY IMAGING REPORT ---
FACILITY: [facility] [place] PATIENT NAME: Pradeep Camargo : 1950 MR: [id number] V: [id number] EXAM DATE: ORDERING PHYSICIAN: ORVILLE MERIDA TECHNOLOGIST: Location: [facility] Patient: Pradeep Camargo : 1950 Visit/Account:[id number] Date of Sevice: 12/07/2017 CHEST PA AND LAT HISTORY: Chest tube placement. COMPARISON: 12/06/2017 and 12/05/2017. TECHNIQUE: PA and lateral views of the chest. FINDINGS: Tubes/lines/hardware: There is a right chest tube, unchanged. Pulmonary: There is a small right apical pneumothorax that is stable to mildly decreased in size. The re is mild bibasilar atelectasis, unchanged. Small right pleural effusion is unchanged. There is a tr manish left pleural effusion versus pleural thickening or atelectasis that is blunting the left costophr enic angle, unchanged. Cardiomediastinal: Cardiac and mediastinal silhouettes are within normal limits. Bones/soft tissues: No acute osseous abnormality. The visible abdomen is normal. IMPRESSION: 1. Small right apical pneumothorax is stable to slightly decreased in size. 2. Stable bibasilar atelectasis. 3. Small right pleural effusion is unchanged. Report Dictated By: Gladys Estrada at 12/07/2017 6:46 AM Report E-Signed By: Gladys Estrada at 12/07/2017 6:49 AM WSN:[id number]
--- NOTE | 2017-12-07 07:08 | General Surgery Progress Note ---
Subjective Progress Notes Subjective no complaints Physical Exam Vital Signs Date Time Temp Pulse Resp B/P (MAP) Pulse Ox O2 Delivery O2 Flow Rate FiO2 12/07/17 03:45 97.7 57 14 132/70 (90) 93 Room Air 0.5 General Appearance: Alert, Awake, No Acute Distress Chest: Other (no air leak observed in chest tube) Result Diagram: 12/06/17 0530 12/05/17 1335 Assessment and Plan Problems: (1) Pneumothorax Assessment & Plan: will repeat cxr in am 12/06/17 cxr shows increased right pneumothorax. under local a 28 yemeni chest tube placed. 12/07/17 small apical pneumothorax but no air leak, will take tube off suction and repeat cxr later (2) Concussion Assessment & Plan: alert and oriented now with neg ct, no further workup indicated (3) Hematuria Assessment & Plan: ct kidney neg, no further workup needed 12/06/17 will repeat ua in am 12/07/17 ua much less blood. (4) Rib fractures Assessment & Plan: admit for pain control (5) Closed fracture of lumbar vertebral body Assessment & Plan: no back pain, most likely old findings on ct (6) Diverticulitis Assessment & Plan: no abdominal pain no treatment necessary 12/06/17 pt without abdominal pain or bowel changes. he had a colonoscopy last summer. not sure what to make of abnormal area seen on ct but not in a position to have colonoscopy right now. Exam Sepsis Risk: No Definite Risk Problem Qualifiers (1) Pneumothorax: Pneumothorax type: traumatic Encounter type: initial encounter Qualified Codes: S27.0XXA - Traumatic pneumothorax, initial encounter ORVILLE MERIDA MD Dec 07, 2017 07:08
[2017-12-07 07:28] VITALS: BP 149/70
[2017-12-07] MEDS: LIDOCAINE 5% PATCH TP SCH (08:30)
[2017-12-07] MEDS: PANTOPRAZOLE SOD 40 MG TABEC PO SCH (08:30)
[2017-12-07] MEDS ORDERED: NS(*) 0.9% 250 ML BAG 250 ML IVPB SCH (09:00)
[2017-12-07] MEDS ORDERED: LOSARTAN POTASSIUM 50 MG TAB PO SCH (09:00)
[2017-12-07 10:48] VITALS: BP 164/73
--- NOTE | 2017-12-07 11:25 | RADIOLOGY IMAGING REPORT ---
FACILITY: [facility] [place] PATIENT NAME: Pradeep Camargo : 1950 MR: [id number] V: [id number] EXAM DATE: ORDERING PHYSICIAN: ORVILLE MERIDA TECHNOLOGIST: [place] [facility] [place] Pradeep Camargo : 1950 Visit/Account:[id number] Date of Sevice: 12/07/2017 Exam type: CHEST PA AND LAT History: Follow-up shortness of breath and chest pain Comparison: December 07, 2017. At 6:08 AM Findings: The right chest tube appears to been pulled back slightly. There has been a further decrease in the small right apical pneumothorax. Bibasal atelectasis is relatively unchanged. Small right pleural e ffusion appears slightly decreased. Mild blunting left costophrenic angle unchanged. Cardiac silhou ette is normal in size. IMPRESSION: 1. Right chest tube appears to been pulled back slightly. There is been further slight decrease in the small right apical pneumothorax Bibasal atelectasis relatively unchanged Small right pleural effusion slightly decreased. Blunting of the left costophrenic angle unchanged Report Dictated By: Maria Guadalupe Briceño MD at 12/07/2017 11:16 AM Report E-Signed By: Maria Guadalupe Briceño MD at 12/07/2017 11:21 AM WSN:[email or web address]
--- NOTE | 2017-12-07 11:41 | General Surgery Progress Note ---
Physical Exam Vital Signs Date Time Temp Pulse Resp B/P (MAP) Pulse Ox O2 Delivery O2 Flow Rate FiO2 12/07/17 10:48 97.9 59 14 164/73 (103) 90 Room Air 12/07/17 03:45 0.5 Intake and Output 12/08/17 07:00 Intake Total 840 ml Output Total 20 ml Balance 820 ml Intake Oral 840 ml Output Chest Tube Drainage Total 20 ml # Voids 2 Result Diagram: 12/06/17 0530 12/05/17 1335 Assessment and Plan Problems: (1) Pneumothorax Assessment & Plan: will repeat cxr in am 12/06/17 cxr shows increased right pneumothorax. under local a 28 uruguayan chest tube placed. 12/07/17 small apical pneumothorax but no air leak, will take tube off suction and repeat cxr later 12/07/17 cxr shows apical pneumo less off suction, chest tube removed, home today. (2) Concussion Assessment & Plan: alert and oriented now with neg ct, no further workup indicated (3) Hematuria Assessment & Plan: ct kidney neg, no further workup needed 12/06/17 will repeat ua in am 12/07/17 ua much less blood. (4) Rib fractures Assessment & Plan: admit for pain control (5) Closed fracture of lumbar vertebral body Assessment & Plan: no back pain, most likely old findings on ct (6) Diverticulitis Assessment & Plan: no abdominal pain no treatment necessary 12/06/17 pt without abdominal pain or bowel changes. he had a colonoscopy last summer. not sure what to make of abnormal area seen on ct but not in a position to have colonoscopy right now. 12/07/[address] peoples, he will review his colonoscopy and decide if repeat colonoscopy needed Exam Sepsis Risk: No Definite Risk Problem Qualifiers (1) Pneumothorax: Pneumothorax type: traumatic Encounter type: initial encounter Qualified Codes: S27.0XXA - Traumatic pneumothorax, initial encounter ORVILLE MERIDA MD Dec 07, 2017 11:41
[2017-12-07] MEDS ORDERED: KET10 PO (11:42)
[2017-12-07] MEDS ORDERED: HYDR-4309 PO (11:42)
--- NOTE | 2017-12-07 11:44 | Short(Outpt) Discharge Summary ---
Discharge Summary Reason for Hosp/Final Diag: (1) Pneumothorax Hospital Course & Plan: will repeat cxr in am 12/06/17 cxr shows increased right pneumothorax. under local a 28 sudanese chest tube placed. 12/07/17 small apical pneumothorax but no air leak, will take tube off suction and repeat cxr later 12/07/17 cxr shows apical pneumo less off suction, chest tube removed, home today. (2) Concussion Hospital Course & Plan: alert and oriented now with neg ct, no further workup indicated (3) Hematuria Hospital Course & Plan: ct kidney neg, no further workup needed 12/06/17 will repeat ua in am 12/07/17 ua much less blood. (4) Rib fractures Hospital Course & Plan: admit for pain control (5) Closed fracture of lumbar vertebral body Hospital Course & Plan: no back pain, most likely old findings on ct (6) Diverticulitis Hospital Course & Plan: no abdominal pain no treatment necessary 12/06/17 pt without abdominal pain or bowel changes. he had a colonoscopy last summer. not sure what to make of abnormal area seen on ct but not in a position to have colonoscopy right now. 12/07/[address] peoples, he will review his colonoscopy and decide if repeat colonoscopy needed Departure Discharge to: Home Discharge Instructions Home Meds Active Scripts Hydrocodone Bit/Acetaminophen (NORCO 5-325 TABLET) 1 Each Tablet, 1 EACH PO Q4H Y for PAIN, #30 TAB Prov:ORVILLE MERIDA MD 12/07/17 Ketorolac Tromethamine (KETOROLAC TROMETHAMINE) 10 Mg Tab, 10 MG PO Q6H, #12 TAB Prov:ORVILLE MERIDA MD 12/07/17 Reported Medications Losartan Potassium (LOSARTAN POTASSIUM) 50 Mg Tablet, 50 MG PO QDAY 12/05/17 Discontinued Reported Medications Losartan Potassium (LOSARTAN POTASSIUM) 25 Mg Tablet, 5 MG PO QDAY 03/25/17 Diet: Regular Activity: As Tolerated Special Instructions: may shower remove bandage in 2 days to see me in one week, call [phone] for apt may use ibuprofen after toradol gone. Problem Qualifiers (1) Pneumothorax: Pneumothorax type: traumatic Encounter type: initial encounter Qualified Codes: S27.0XXA - Traumatic pneumothorax, initial encounter ORVILLE MERIDA MD Dec 07, 2017 11:43
== END 2017-12-07 13:25 | disposition home or self-care (01) | DRG 964 ==
LOC: ER 13:48 → INTOOBSV 17:01 → MED 17:01 → OBSVTOIN 17:01
PROVIDERS: ADMIT Surgery; ATTEND Surgery
PROC: 0W9930Z Drainage of Right Pleural Cavity with Drainage Device, Percutaneous Approach (ICD-10-PCS; principal; 2017-12-06)
DX: S27.0XXA Traumatic pneumothorax, initial encounter (principal); S22.41XA Multiple fractures of ribs, right side, initial encounter for closed fracture; S37.019A Minor contusion of unspecified kidney, initial encounter; S32.010A Wedge compression fracture of first lumbar vertebra, initial encounter for closed fracture; S22.000A Wedge compression fracture of unspecified thoracic vertebra, initial encounter for closed fracture; K57.32 Diverticulitis of large intestine without perforation or abscess without bleeding; W11.XXXA Fall on and from ladder, initial encounter; S06.0X0A Concussion without loss of consciousness, initial encounter; R41.0 Disorientation, unspecified; I10 Essential (primary) hypertension; Z97.3 Presence of spectacles and contact lenses; Z87.81 Personal history of (healed) traumatic fracture; F17.220 Nicotine dependence, chewing tobacco, uncomplicated; R31.0 Gross hematuria
CPT/HCPCS: 36415; 70450; 71045; 71046; 71260; 72125; 72129; 72132; 72170; 74177; 81001; 82040; 82247; 82310; 82374; 82435; 82565; 82947; 84075; 84132; 84155; 84295; 84450; 84460; 84520; 85025; 85610; 85730; 90471; 90715; 96374; 96375; 99285; A7048; J1885; J2270; J2405; J7050; Q9967

== ENCOUNTER → 2017-12-13 | Outpatient (CLI) | payer OTHER, MEDICARE ==
[2017-12-06 09:18] VITALS: BMI 27.9
[~2017-12-13] MED LIST changes: +HYDR-4309 PO; +KET10 PO; +LOSA50TA72 PO
--- NOTE | 2017-12-13 10:43 | RADIOLOGY IMAGING REPORT ---
[place]AC[place] [facility] [place] NAME: Pradeep Camargo : 1950 MR: [id number] V: [id number] EXAM DATE: ORDERING PHYSICIAN: ORVILLE MERIDA TECHNOLOGIST: [place] [facility] [place]ade[place] : 1950 Visit/Account:[id number] Date of Sevice: 12/13/2017 Exam type: CHEST PA AND LAT History: Follow-up pneumothorax Comparison: December 07, 2017. Findings: The previously noted right chest tube is no longer seen there is no evidence of a pneumothorax. Smal l right pleural effusion appears relatively unchanged. A small amount of residual right basilar cons olidation also unchanged. Left lung is free of consolidation cardiac silhouette is normal in size. Multiple right-sided rib fractures again noted IMPRESSION: 1. Right chest tube is been removed with no evidence of a pneumothorax Small right pleural effusion and small amount of right basilar consolidation appears relatively uncha nged. Multiple right-sided rib fractures again seen Report Dictated By: Maria Guadalupe Briceño MD at 12/13/2017 10:34 AM Report E-Signed By: Maria Guadalupe Briceño MD at 12/13/2017 10:38 AM WSN:[email or web address]
== END ==
LOC: RAD 09:47
PROVIDERS: ATTEND Surgery
DX: J90 Pleural effusion, not elsewhere classified (principal)
CPT/HCPCS: 71046

== ENCOUNTER → 2017-12-20 | Outpatient (CLI) | payer OTHER, MEDICARE ==
[2017-12-06 09:18] VITALS: BMI 27.9
--- NOTE | 2017-12-20 09:19 | RADIOLOGY IMAGING REPORT ---
FACILITY: [facility] - [place] PATIENT NAME: Pradeep Camargo : 1950 MR: [id number] V: [id number] EXAM DATE: ORDERING PHYSICIAN: ORVILLE MERIDA TECHNOLOGIST: Location: [facility] [place] Patient: Pradeep Camargo : 1950 Visit/Account:[id number] Date of Sevice: 12/20/2017 CHEST PA AND LAT HISTORY: Follow-up pneumothorax. COMPARISON: 12/13/2017 FINDINGS: Cardiomediastinal contours: Normal Lungs and pleura: Stable right pleural-parenchymal opacities. No measurable pneumothorax. Bones/soft tissues: Multiple old right rib fractures. Stable mild wedging of a midthoracic vertebral body. Other findings: None significant IMPRESSION: 1. No interval change. Report Dictated By: Musa Jackson MD at 12/20/2017 9:07 AM Report E-Signed By: Musa Jackson MD at 12/20/2017 9:13 AM WSN:[email or web address]
== END ==
LOC: RAD 08:34
PROVIDERS: ATTEND Surgery
DX: J93.9 Pneumothorax, unspecified (principal)
CPT/HCPCS: 71046

== ENCOUNTER → 2018-01-17 | Outpatient (CLI) | payer MEDICARE, OTHER ==
[2017-12-06 09:18] VITALS: BMI 27.9
--- NOTE | 2018-01-17 13:46 | RADIOLOGY IMAGING REPORT ---
FACILITY: [facility] - [place] PATIENT NAME: Pradeep Camargo : 1950 MR: [id number] V: [id number] EXAM DATE: ORDERING PHYSICIAN: ORVILLE MERIDA TECHNOLOGIST: Location: [facility] Patient: Pradeep Camargo : 1950 Visit/Account:[id number] Date of Sevice: 01/17/2018 Exam type: CHEST PA AND LAT History: Follow-up rib fracture, no chest complaints Comparison: December 20, 2017 Findings: Their has been slight improvement of the pleural parenchymal densities over the right mid to lower th orax. No new areas of pulmonary consolidation are seen. There is no evidence of a pneumothorax. Mu ltiple old displaced right rib fractures again seen. The cardiac silhouette is normal in size.. IMPRESSION: 1. Partial improvement of the pleural-parenchymal density over the right thorax when compared the pr ior study No evidence of a pneumothorax Multiple displaced right-sided rib fractures Report Dictated By: Maria Guadalupe Briceño MD at 01/17/2018 1:40 PM Report E-Signed By: Mraia Guadalupe Briceño MD at 01/17/2018 1:42 PM WSN:[email or web address]
== END ==
LOC: RAD 11:52
PROVIDERS: ATTEND Surgery
DX: S22.41XD Multiple fractures of ribs, right side, subsequent encounter for fracture with routine healing (principal); R91.8 Other nonspecific abnormal finding of lung field
CPT/HCPCS: 71046

== ENCOUNTER → 2019-03-03 | Outpatient (REF) | payer OTHER ==
[2017-12-06 09:18] VITALS: BMI 27.9
[~2019-03-03] MED LIST changes: -HYDR-4309 PO; +HYDR-653 PO; -LOSA25TA50 PO; +LOSA25TA57 PO; -LOSA50TA72 PO; +LOSA50TA80 PO
== END ==
LOC: ZZSENDIN 09:07
PROVIDERS: ATTEND Family Medicine
DX: R97.20 Elevated prostate specific antigen [PSA] (principal)
CPT/HCPCS: 84154

== ENCOUNTER → 2019-03-31 | Outpatient (REF) | payer OTHER ==
[2017-12-06 09:18] VITALS: BMI 27.9
== END ==
LOC: ZZSENDIN 12:45
PROVIDERS: ATTEND Urology
DX: N41.0 Acute prostatitis (principal); N41.1 Chronic prostatitis
CPT/HCPCS: 88305; 88344